=== PATIENT | female | born 1995 | race Caucasian/White ===

== ENCOUNTER 2018-06-15 12:54 | Emergency (ER) | payer OTHER ==
[2018-06-15 13:58] VITALS: BP 113/78
--- NOTE | 2018-06-15 14:59 | RAD ---
HISTORY: pain 1st metacarpal bone with bruise COMPARISONS: None VIEWS: 4 , Frontal, lateral, and oblique views of the right hand FINDINGS: BONE DENSITY: Normal. BONES: There is no displaced fracture. JOINTS: There is no arthropathy. ALIGNMENT: There is no dislocation. SOFT TISSUES: Unremarkable. OTHER FINDINGS: None. IMPRESSION: NO ACUTE OSSEOUS INJURY. IF SYMPTOMS PERSIST, RECOMMEND REPEAT IMAGING.
--- NOTE | 2018-06-15 15:07 | ED ---
Upper Extremity Pain - HPI Summary HPI Summary: 23 yr old female with right 1st metacarpal pain after punching a wall last evening. She has some bruising over the area. No pain at base of thumb. Pain is moderate in her hand. No other injuries. - History of Current Complaint Chief Complaint: UCUpperExtremity Stated Complaint: RIGHT HAND INJURY Time Seen by Provider: 06/15/18 14:33 Hx Last Menstrual Period: 05/28/18 - Allergies/Home Medications Allergies/Adverse Reactions: Allergies Allergy/AdvReac Type Severity Reaction Status Date / Time azithromycin Allergy Rash Verified 06/15/18 13:51 Home Medications: Home Medications Norethindrone-E.estradiol-Iron [Minastrin 24 Fe 1-20 mg-Mcg(24)] 1 chw PO DAILY 06/15/18 [History Confirmed 06/15/18] PMH/Surg Hx/FS Hx/Imm Hx Infectious Disease History: No Infectious Disease History: Denies: Traveled Outside the [place] in Last 30 Days - Family History Known Family History: Positive: None - Social History Occupation: Student Alcohol Use: Weekly Substance Use Type: Reports: None Smoking Status (MU): Never Smoked Tobacco Type: Smokeless Tobacco Amount Used/How Often: 2 times weekly- micheal Review of Systems Constitutional: Negative Positive: Other - contusion foot All Other Systems Reviewed And Are Negative: Yes Physical Exam Triage Information Reviewed: Yes Vital Signs On Initial Exam: Initial Vitals Temp Pulse Resp BP Pulse Ox 97.3 F 106 16 113/78 100 06/15/18 13:52 06/15/18 13:52 06/15/18 13:52 06/15/18 13:52 06/15/18 13:52 Vital Signs Reviewed: Yes Appearance: Positive: Well-Appearing, No Pain Distress Skin: Positive: Warm, Skin Color Reflects Adequate Perfusion Head/Face: Positive: Normal Head/Face Inspection Eyes: Positive: EOMI Respiratory/Lung Sounds: Positive: Other - normal effort Cardiovascular: Positive: Pulses are Symmetrical in both Upper and Lower Extremities - strong radial pule and cap refill Abdomen Description: Positive: Nontender Musculoskeletal: Positive: Strength/ROM Intact, Other - tender over the 1st metacarpal bone with bruise on right hand in this area. no snuff box tenderness. No tenderness over thumb, and no laxity of the unlar collateral ligament or tenderness on ROM. Neurological: Positive: Sensory/Motor Intact, Alert, Oriented to Person Place, Time, CN Intact II-III Psychiatric: Positive: Normal Diagnostics - Vital Signs Vital Signs Temp Pulse Resp BP Pulse Ox 06/15/18 13:52 97.3 F 106 16 113/78 100 - Laboratory Lab Statement: Any lab studies that have been ordered have been reviewed, and results considered in the medical decision making process. Course/Dx - Course Course Of Treatment: contusion to hand. - Diagnoses Provider Diagnoses: Contusion Discharge - Sign-Out/Discharge Documenting (check all that apply): Patient Departure All imaging exams completed and their final reports reviewed: No Studies - Discharge Plan Condition: Good Disposition: HOME Patient Education Materials: Contusion in Adults (ED) Referrals: [facility] [place] [facility] [Outside] [facility] [Outside] No Primary Care Phys,NOPCP [Primary Care Provider] - - Billing Disposition and Condition Condition: GOOD Disposition: Home
== END 2018-06-15 15:38 | disposition home or self-care (01) ==
LOC: UCCORT 12:54
DX: S60.221A Contusion of right hand, initial encounter (principal); W22.8XXA Striking against or struck by other objects, initial encounter; Y92.9 Unspecified place or not applicable; F17.290 Nicotine dependence, other tobacco product, uncomplicated; Z88.3 Allergy status to other anti-infective agents
CPT/HCPCS: 99201; G0463